=== PATIENT | female | born 1980 | race Caucasian/White ===

== ENCOUNTER 2016-12-13 11:59 | Emergency (ER) | payer OTHER ==
[2016-12-13] MEDS ORDERED: OXYCODONE-ACETAMINOPHEN 5-325 MG TABLET PO ONE (12:16)
--- NOTE | 2016-12-13 12:16 | ER Document Report ---
ED Medical Screen (RME) - General Stated Complaint: BACK PAIN Time seen by provider: 12:14 Mode of Arrival: Ambulatory Information source: Patient TRAVEL OUTSIDE OF THE [place] IN LAST 30 DAYS: No - HPI Patient complains to provider of: LOWER BACK PAIN Onset: Yesterday Onset/Duration: Gradual Quality of pain: Pressure, Sharp Severity: Moderate Pain Level: 4 Associated Symptoms: None. denies: Dysuria Exacerbated by: Sitting, Movement, Walking Relieved by: Denies Similar symptoms previously: No Recently seen / treated by doctor: No Notes: 12/13/16 12:15 PAIN RADIATES TO BACK OF BOTH THIGHS. DENIES INJURY. DENIES PREVIOUS EPISODES OF BACK PROBLEMS. - Related Data Smoking: Quit less than 1 year Frequency of alcohol use: Occasional Drug Abuse: None Allergies/Adverse Reactions: cephalexin monohydrate [From Keflex] Allergy (Verified 12/13/16 12:13) morphine [Morphine] Allergy (Verified 12/13/16 12:13) Bee Stings Allergy (Uncoded 12/13/16 12:13) Past Medical History - Past Medical History Cardiac Medical History: Denies: Hx Coronary Artery Disease, Hx Heart Attack, Hx Hypertension Pulmonary Medical History: Reports: Hx Pneumonia - Hospitalized, May 2004 Denies: Hx Asthma, Hx Bronchitis, Hx COPD Neurological Medical History: Denies: Hx Cerebrovascular Accident, Hx Seizures Musculoskeltal Medical History: Denies Hx Arthritis Past Surgical History: Reports: Hx Section, Hx Gynecologic Surgery - tubes tied, , Hx Myringotomy. Denies: Hx Hysterectomy, Hx Pacemaker - Immunizations Immunizations up to date: Yes Hx Diphtheria, Pertussis, Tetanus Vaccination: Yes Physical Exam - Vital signs Vitals: Temp Pulse Resp BP Pulse Ox 97.6 F 83 16 135/92 H 98 12/13/16 12:04 12/13/16 12:04 12/13/16 12:04 12/13/16 12:04 12/13/16 12:04 Course - Vital Signs Vital signs: Temp Pulse Resp BP Pulse Ox 97.6 F 83 16 135/92 H 98 12/13/16 12:04 12/13/16 12:04 12/13/16 12:04 12/13/16 12:04 12/13/16 12:04
[2016-12-13 12:52] LABS: APPEARANCE,URINE CLEAR; BILIRUBIN,URINE NEGATIVE (NEGATIVE); GLUCOSE, URINE NEGATIVE (NEGATIVE); KETONES,URINE NEGATIVE (NEGATIVE); LEUKOCYTE ESTERASE,URINE TRACE (NEGATIVE); NITRITE,URINE NEGATIVE (NEGATIVE); PROTEIN,URINE NEGATIVE (NEGATIVE); URINE SPECIFIC GRAVITY 1.004; UROBILINOGEN,URINE NEGATIVE mg/dL (<2.0)
--- NOTE | 2016-12-13 14:30 | ER Document Report ---
ED Neck/Back Problem - General Chief Complaint: Low Back Pain Stated Complaint: BACK PAIN Time seen by provider: 14:15 Mode of Arrival: Ambulatory Information source: Patient Notes: 36-year-old female presents to ED for back pain that started yesterday when she was patient states she does not have pain radiating down her leg that it does go out to her buttocks. TRAVEL OUTSIDE OF THE [place] IN LAST 30 DAYS: No - HPI Patient complains to provider of: Pain, Lower back. No: Injury, Neck, Upper back Onset: Yesterday Where: Home - Pain started when she rolled over in adjusted for pillows Onset: Gradual Timing: Still present Quality of pain: Sharp Severity: Moderate Pain Level: 3 Context: Turning - To adjust for pillows and bed. denies: Became dizzy, Bending , Fainted, Fall/near-fall, Lifting, Seizure Recent injury: No Associated symptoms: Lower back pain. denies: Constipation, Incontinence, Motor loss, Numbness/tingling, Radiation to arm, Radiation to chest, Radiation to leg, Sensory loss, Unable to urinate, Upper back pain Exacerbated by: Movement of trunk, Sitting position Relieved by: Nothing Similar symptoms previously: No Recently seen / treated by doctor: No - Related Data Allergies/Adverse Reactions: cephalexin monohydrate [From Keflex] Allergy (Verified 12/13/16 12:13) morphine [Morphine] Allergy (Verified 12/13/16 12:13) Bee Stings Allergy (Uncoded 12/13/16 12:13) Past Medical History - General Information source: Patient - Social History Smoking Status: Former Smoker Cigarette use (# per day): No Chew tobacco use (# tins/day): No Smoking Education Provided: No Frequency of alcohol use: Occasional Drug Abuse: None Occupation: store person Lives with: Spouse/Significant other Family History: Arthritis, CAD, CVA, DM, Hyperlipidemia, Hypertension, Malignancy. denies: COPD, Thyroid Disfunction Patient has suicidal ideation: No Patient has homicidal ideation: No - Past Medical History Cardiac Medical History: Reports: None Pulmonary Medical History: Reports: Hx Pneumonia - Hospitalized, May 2004, Other - Pleurisy EENT Medical History: Reports: None Neurological Medical History: Reports: None Endocrine Medical History: Reports: None Renal/ Medical History: Reports: None Malignancy Medical History: Reports: None GI Medical History: Reports: None Musculoskeltal Medical History: Reports Hx Musculoskeletal Trauma - Toe fracture Skin Medical History: Reports None Psychiatric Medical History: Reports: Hx Depression - After second childbirth Traumatic Medical History: Reports: Hx Fractures - Toe Infectious Medical History: Reports: None Past Surgical History: Reports: Hx Section, Hx Myringotomy, Hx Oral Surgery - Tooth surgically removed, Hx Tubal Ligation - Immunizations Immunizations up to date: Yes Hx Diphtheria, Pertussis, Tetanus Vaccination: Yes Review of Systems - Review of Systems Constitutional: No symptoms reported EENT: No symptoms reported Cardiovascular: No symptoms reported Respiratory: No symptoms reported Gastrointestinal: No symptoms reported Genitourinary: No symptoms reported Female Genitourinary: No symptoms reported Musculoskeletal: Back pain Skin: No symptoms reported Hematologic/Lymphatic: No symptoms reported Neurological/Psychological: No symptoms reported -: Yes All other systems reviewed and negative Physical Exam - Vital signs Vitals: Temp Pulse Resp BP Pulse Ox 97.6 F 83 16 135/92 H 98 12/13/16 12:04 12/13/16 12:04 12/13/16 12:04 12/13/16 12:04 12/13/16 12:04 Interpretation: Normal - General General appearance: Appears well, Alert - HEENT Head: Normocephalic, Atraumatic Eyes: Normal Pupils: PERRL - Respiratory Respiratory status: No respiratory distress Chest status: Nontender Breath sounds: Normal Chest palpation: Normal - Cardiovascular Rhythm: Regular Heart sounds: Normal auscultation Murmur: No - Abdominal Inspection: Normal Distension: No distension Bowel sounds: Normal Tenderness: Nontender Organomegaly: No organomegaly. No: Mass - No pulsatile masses - Back Back: Normal, Other - Back pain bilaterally from just above the waist down no vertebral tenderness no radiation to legs some discomfort in the SI joint bilaterally. No: Vertebra tenderness - Extremities General upper extremity: Normal inspection, Nontender, Normal color, Normal ROM , Normal temperature General lower extremity: Normal inspection, Nontender, Normal color, Normal ROM , Normal temperature, Normal weight bearing. No: Arin's sign - Neurological Neuro grossly intact: Yes Cognition: Normal Orientation: AAOx4 Sybil Coma Scale Eye Opening: Spontaneous Hitchcock Coma Scale Verbal: Oriented Sybil Coma Scale Motor: Obeys Commands Sybil Coma Scale Total: 15 Speech: Normal Motor strength normal: LUE, RUE, LLE, RLE Sensory: Normal - Psychological Associated symptoms: Normal affect, Normal mood - Skin Skin Temperature: Warm Skin Moisture: Dry Skin Color: Normal Course - Re-evaluation Re-evalutation: 12/13/16 14:52 Discussed use of muscle relaxers ice and heat and back exercises for her low back pain for 2 days. No signs of cuada equina. - Vital Signs Vital signs: Temp Pulse Resp BP Pulse Ox 97.6 F 83 16 135/92 H 98 12/13/16 12:04 12/13/16 12:04 12/13/16 12:04 12/13/16 12:04 12/13/16 12:04 - Laboratory Laboratory results interpreted by me: 12/13/16 12:20 Urine Blood MODERATE H Ur Leukocyte Esterase TRACE H Discharge - Discharge Clinical Impression: Low back pain Qualifiers: Chronicity: acute Back pain laterality: bilateral Sciatica presence: without sciatica Qualified Code(s): M54.5 - Low back pain Condition: Stable Disposition: HOME, SELF-CARE Additional Instructions: LOW BACK PAIN: Three out of every four people will have an episode of disabling back pain during their lifetime. Most commonly the pain is due to straining of the muscles and ligaments in the low back. Usual treatment includes: (1) Rest on a firm surface. Avoid lying on your stomach. (2) Ice pack the painful area. After a few days, gentle heat may be used intermittently to relax the area, or ice packs can be continued. (3) Medication may be needed -- muscle relaxers and antiinflammatory medicines are commonly used. (4) As the back improves, exercises are prescribed to strengthen the back and abdominal muscles. Your doctor will advise you on the proper care for your back at each stage in your recovery. You may be better in a few days -- or healing may take several weeks. If new symptoms of a "herniated disc" (radiation of pain, numbness, or tingling down the back of the leg or weakness in the leg) occur, you should be re-examined. Further testing may be necessary. Ibuprofen Ibuprofen is an excellent, safe drug for pain control. In addition, it has potent antiinflammatory effects which are beneficial, especially in the treatment of injuries, arthritis, or tendonitis. It's best to take ibuprofen with food. Persons with ulcer disease or allergy to aspirin should notify their physician of this before taking ibuprofen. Take the medication exactly as prescribed. Don't take additional doses unless instructed to do so by your doctor. If you develop wheezing, shortness of breath, hives, faintness, stomach pain, vomiting, or dark black stools, return for re-evaluation at once. MUSCLE RELAXERS: Muscle relaxing medications are usually prescribed for acute muscle spasm or injury to the neck and back. They are often combined with antiinflammatory pain medication for increased relief. You may stop the muscle relaxer when the pain and stiffness have improved. Start the medication again if spasms recur. Muscle relaxers may cause drowsiness, especially with the first dose. Do not operate machinery or drive while under the effects of the medication. Most muscle relaxers last up to 24 hours. Do not combine the medication with alcohol. ICE PACKS: Apply ice packs frequently against the painful area. Many different schedules are recommended, such as "20 minutes on, 20 minutes off" or "one hour ice, two hours rest." If you need to work, you may need to go longer between ice treatments. You should plan to have the area ice packed AT LEAST one fourth of the time. The ice should be applied over the wrap, tape, or splint, or over a layer of cloth -- not directly against the skin. Some ice bags have a built-in cloth and can be put directly on the skin. WARM PACKS: After approximately two days, apply gentle heat (such as a heating pad or hot water bottle) for about 20 to 30 minutes about every two hours -- at least four times daily. Warmth and elevation will help you make a more rapid recovery , and will ease the pain considerably. Do not use HOT heat, and never apply heat for longer than 30 minutes. The continuous heat can invisibly damage skin and muscles -- even when no burn is seen on the surface. Damaged muscles can make you MORE sore. FOLLOW-UP CARE: If you have been referred to a physician for follow-up care, call the physician s office for an appointment as you were instructed or within the next two days. If you experience worsening or a significant change in your symptoms, notify the physician immediately or return to the Emergency Department at any time for re-evaluation. Prescriptions: Cyclobenzaprine HCl [Flexeril 5 mg Tablet] 5 mg PO TID #15 tablet Naproxen 500 mg PO BIDP PRN #14 tablet PRN Reason: Forms: Elevated Blood Pressure, Return to Work Referrals: JOLENE CANDELARIA MD [Primary Care Provider] - Follow up as needed
[2016-12-13 14:57] VITALS: BP 124/78
== END 2016-12-13 14:55 | disposition home or self-care (01) ==
LOC: ER 11:59
DX: M54.5 Low back pain (principal); Z87.891 Personal history of nicotine dependence
CPT/HCPCS: 81001; 99283

== ENCOUNTER 2017-04-03 12:39 | Emergency (ER) | payer SELFPAY ==
[2017-04-03] MEDS ORDERED: PREDNISONE 20 MG TABLET PO ONE (13:32)
[2017-04-03] MEDS ORDERED: DIPHENHYDRAMINE HCL 25 MG CAPSULE PO ONE (13:32)
[2017-04-03] MEDS ORDERED: FAMOTIDINE 20 MG TABLET PO ONE (13:32)
--- NOTE | 2017-04-03 13:32 | ER Document Report ---
ED Skin Rash/Insect Bite/Abscs - General Chief Complaint: Insect Bite Stated Complaint: POSSIBLE BITE Time Seen by Provider: 04/03/17 13:21 Mode of Arrival: Ambulatory Information source: Patient Notes: 36-year-old female presents to ED for a possible insect bite to her arm. She states that she developed a little red spot this morning but the back of her tongue feels like it is swollen and painful. Difficulty swallowing no difficulty breathing no shortness of breath. Communicates in full sentences and no acute distress noted. TRAVEL OUTSIDE OF THE [place] IN LAST 30 DAYS: No - HPI Patient complains to provider of: Insect bite Onset: Other - Noticed this morning and not sure when she got the bite Quality of pain: Burning Severity: Moderate Pain Level: 3 Skin Character: Other - Insect bite to left forearm minimal swelling to bilateral tonsils no swelling noted to tongue Quality of rash: Painful Identify cause: No Exacerbated by: Denies Relieved by: Denies Similar symptoms previously: Yes Recently seen / treated by doctor: No - Related Data Allergies/Adverse Reactions: cephalexin monohydrate [From Keflex] Allergy (Verified 04/03/17 12:51) morphine [Morphine] Allergy (Verified 04/03/17 12:51) Bee Stings Allergy (Uncoded 04/03/17 12:51) Past Medical History - General Information source: Patient - Social History Smoking Status: Current Every Day Smoker Cigarette use (# per day): Yes - 6-7 cigarettes a day Chew tobacco use (# tins/day): No Smoking Education Provided: Yes - less than 2 minutes Frequency of alcohol use: Occasional Drug Abuse: None Occupation: [employer] Lives with: Spouse/Significant other Family History: Arthritis, CAD, CVA, DM, Hyperlipidemia, Hypertension, Malignancy Patient has suicidal ideation: No Patient has homicidal ideation: No - Past Medical History Cardiac Medical History: Reports: Hx Hypertension Pulmonary Medical History: Reports: Hx Pneumonia - Hospitalized, May 2004 Neurological Medical History: Reports: Hx Migraine Endocrine Medical History: Reports: None Renal/ Medical History: Reports: None Malignancy Medical History: Reports: None GI Medical History: Reports: None Musculoskeltal Medical History: Reports Hx Musculoskeletal Trauma - Toe fracture Skin Medical History: Reports None Psychiatric Medical History: Reports: Hx Depression - After second childbirth Traumatic Medical History: Reports: Hx Fractures - Toe Infectious Medical History: Reports: None Past Surgical History: Reports: Hx Adenoidectomy, Hx Section, Hx Gynecologic Surgery - tubes tied, , LEEP, Hx Myringotomy, Hx Oral Surgery - Tooth surgically removed, Hx Tubal Ligation - Immunizations Immunizations up to date: Yes Hx Diphtheria, Pertussis, Tetanus Vaccination: Yes Review of Systems - Review of Systems Constitutional: No symptoms reported EENT: Throat pain Cardiovascular: No symptoms reported Respiratory: No symptoms reported Gastrointestinal: No symptoms reported Genitourinary: No symptoms reported Female Genitourinary: No symptoms reported Musculoskeletal: No symptoms reported Skin: Other - A small insect bite to left forearm Hematologic/Lymphatic: No symptoms reported Neurological/Psychological: No symptoms reported -: Yes All other systems reviewed and negative Physical Exam - Vital signs Vitals: Temp Pulse Resp BP Pulse Ox 98.2 F 76 18 131/87 H 100 04/03/17 12:55 04/03/17 12:55 04/03/17 12:55 04/03/17 12:55 04/03/17 12:55 Interpretation: Normal - General General appearance: Appears well, Alert - HEENT Head: Normocephalic, Atraumatic Eyes: Normal Pupils: PERRL Ears: Normal External canal: Normal Tympanic membrane: Normal Sinus: Normal Nasal: Normal Mouth/Lips: Normal Mucous membranes: Normal Pharynx: Erythema, Tonsillar hypertrophy - minimal Neck: Normal - Respiratory Respiratory status: No respiratory distress Chest status: Nontender Breath sounds: Normal Chest palpation: Normal - Cardiovascular Rhythm: Regular Heart sounds: Normal auscultation Murmur: No - Abdominal Inspection: Normal Distension: No distension Bowel sounds: Normal Tenderness: Nontender Organomegaly: No organomegaly - Back Back: Normal, Nontender - Extremities General upper extremity: Normal inspection, Nontender, Normal color, Normal ROM , Normal temperature General lower extremity: Normal inspection, Nontender, Normal color, Normal ROM , Normal temperature, Normal weight bearing. No: Arin's sign - Neurological Neuro grossly intact: Yes Cognition: Normal Orientation: AAOx4 Godwin Coma Scale Eye Opening: Spontaneous Godwin Coma Scale Verbal: Oriented Godwin Coma Scale Motor: Obeys Commands Sybil Coma Scale Total: 15 Speech: Normal Motor strength normal: LUE, RUE, LLE, RLE Sensory: Normal - Psychological Associated symptoms: Normal affect, Normal mood - Skin Skin Temperature: Warm Skin Moisture: Dry Skin Color: Normal Location of irregularity: Other - Small insect bite to left forearm Course - Re-evaluation Re-evalutation: 04/03/17 15:21 strep test negative. Follow-up with her primary doctor. Patient was given a prescription for a EpiPen as she states she has multiple allergies to insects and is out of her EpiPen. - Vital Signs Vital signs: Temp Pulse Resp BP Pulse Ox 98.2 F 76 18 131/87 H 100 04/03/17 12:55 04/03/17 12:55 04/03/17 12:55 04/03/17 12:55 04/03/17 12:55 Discharge - Discharge Clinical Impression: Sore throat Insect bite Qualifiers: Encounter type: initial encounter Qualified Code(s): W57.XXXA - Bitten or stung by nonvenomous insect and other nonvenomous arthropods, initial encounter Condition: Stable Disposition: HOME, SELF-CARE Additional Instructions: ACUTE ALLERGIC REACTION: Your symptoms are due to an allergic reaction. Allergy can cause hives, swelling of the hands, feet, and face, hoarseness, and difficulty swallowing or breathing. It may be due to exposure to medication, animal dander, foods, infection, or insect bites. Medication is a common cause, even when prior use of this same medication caused no problems. Acute treatment may include adrenalin and antihistamines. Usually, the specific allergic agent can't be identified unless repeated episodes occur. Home treatment includes the following: (1) Stop any suspicious medications. This will be discussed with you. (2) Oral antihistamines for the next four to five days. Example, diphenhydramine (Benadryl) every four hours. (3) You may also use cimetidine (Tagamet), ranitidine (Zantac), or famotidine ( Pepcid) every four hours if diphenhydramine is not controlling itching and hives. (4) Avoid aspirin until the hives completely disappear. (5) Avoid hot baths or showers until the hives are completely gone. Call the doctor if faintness, difficulty swallowing, tightness in the chest , or wheezing occurs. EPINEPHRINE: An injection of epinephrine (also called adrenalin) is used to treat allergic reactions, asthma, and some other medical conditions. It is a stimulant medication that consticts blood vessels, relaxes smooth muscles such as in the bronchioles of the lung, elevates blood pressure, and increases heart rate. It can temporarily make you feel very nervous and shakey, but it's affects last only a short time, about 15 to 30 minutes at most. You did not need epinephrine today. There was no swelling to your tongue. You have stated you have a reaction to many insects and I have given you a refill for your EpiPen. If you use the EpiPen you need to be seen by a doctor to ensure everything is okay. STEROID MEDICATION: You have been given a medicine of the cortisone/steroid class. This medication is used to control inflammation or allergy. It is usually only given for a short period of time, until the acute process subsides. There are usually no side effects from short-term use of cortisone-like medications. Some persons feel an increased sense of well-being and are not sleepy at bedtime. Long-term use of cortisone medications is best avoided, unless required for a severe condition. If your condition does not remit, or relapses after the course of corticosteroid medication, you should consult your physician. ACID-SUPPRESSING MEDICATION: You have a prescription for medicine which reduces the stomach's secretion of acid. Examples include Zantac, Tagament, and Pepcid. These drugs are often used to allow healing of ulcers or esophagitis. They may be needed to prevent recurrence of ulcers in some patients, or to prevent damage from acid reflux in the esophagus. Take all medication as prescribed, even after the pain is gone. Regular antacids may be added as needed if you have symptoms while taking this medicine. These medications sometimes are prescribed for allergic reactions because they have anti-histaminic effects and relieve the rash and itching of the reaction. There are usually no side effects from this medication. But, in rare cases and particularly in the elderly, serious problems can occur. Contact your doctor if there is fever, rash, hallucinations, confusion, or unusual bruising. Contact your doctor at once if you develop lightheadedness, black or bloody stool, or bloody vomitus. ANTIHISTAMINES: An antihistamine has been given and/or prescribed to control your symptoms. Antihistamines are used for many reasons, including itching, watering eyes, runny nose, allergic swelling, hives, and insect stings. Antihistamines may cause drowsiness, especially with the first dose. Do not operate machinery or drive while under the effects of the medication. Other common side effects include dry mouth and eyes. In older persons, antihistamines can occasionally cause urinary retention, constipation, and trouble focusing the eyes. Do not combine the medication with alcohol, or with any other medication without talking to your doctor. USE OF DIPHENHYDRAMINE: The use of diphenhydramine (Benadryl) has been recommended to control allergic symptoms. The 25 mg strength is available over- the-counter, as well as the elixir. This antihistamine is used for many symptoms. It's useful for itching, watering eyes and nose, allergic swelling, hives, and insect stings. The medication can be repeated four times daily. Age Elixir (12.5 mg/tsp) 25 mg pill 2-3 yr 1/2 tsp 4-8 yr 1 tsp 9-14 yr 2 tsp one tab adult 1-2 tabs Antihistamines may cause drowsiness, especially with the first dose. Do not operate machinery or drive while under the effects of the medication. Do not combine the medication with alcohol, or with any other medication without talking to your doctor. FOLLOW-UP CARE: If you have been referred to a physician for follow-up care, call the physician s office for an appointment as you were instructed or within the next two days. If you experience worsening or a significant change in your symptoms, notify the physician immediately or return to the Emergency Department at any time for re-evaluation. Prescriptions: Epinephrine [Epipen] 0.3 mg IJ ASDIR PRN #1 auto.injct PRN Reason: Forms: Elevated Blood Pressure, Smoking Cessation Education, Return to Work Referrals: JOLENE CANDELARIA MD [Primary Care Provider] - 04/04/17
[2017-04-03 15:55] VITALS: BP 115/70
== END 2017-04-03 15:32 | disposition home or self-care (01) ==
LOC: ER 12:39
DX: S50.862A Insect bite (nonvenomous) of left forearm, initial encounter (principal); W57.XXXA Bitten or stung by nonvenomous insect and other nonvenomous arthropods, initial encounter; J02.9 Acute pharyngitis, unspecified; J35.1 Hypertrophy of tonsils; R13.10 Dysphagia, unspecified; I10 Essential (primary) hypertension; F17.210 Nicotine dependence, cigarettes, uncomplicated; Z71.6 Tobacco abuse counseling; Z88.1 Allergy status to other antibiotic agents; Z88.5 Allergy status to narcotic agent; Z91.030 Bee allergy status
CPT/HCPCS: 99282; 87070; 87880; 87077; J7512

== ENCOUNTER 2018-03-05 11:37 | Emergency (ER) | payer OTHER ==
--- NOTE | 2018-03-05 13:11 | ER Document Report ---
HPI - HPI Patient complains to provider of: worsening back pain Onset: Other - after moving boxes on Quality of pain: Achy Pain Level: 4 Context: 37 yo female with chronic intermittent back pain has worsening bilateral lumbar back pain after moving boxes on . No saddle anesthesia, no radiculopathy. NO fever or chills. No IV drug use. Associated Symptoms: None Exacerbated by: Movement Relieved by: Denies Similar symptoms previously: Yes Recently seen / treated by doctor: No - ROS ROS below otherwise negative: Yes Systems Reviewed and Negative: Yes All other systems reviewed and negative Past Medical History - General Information source: Patient - Social History Smoking Status: Current Every Day Smoker Chew tobacco use (# tins/day): No Frequency of alcohol use: Occasional Drug Abuse: None Lives with: Family Family History: Arthritis, CAD, CVA, DM, Hyperlipidemia, Hypertension, Malignancy Patient has suicidal ideation: No Patient has homicidal ideation: No - Past Medical History Cardiac Medical History: Reports: Hx Hypertension Pulmonary Medical History: Reports: Hx Pneumonia - Hospitalized, May 2004 Neurological Medical History: Reports: Hx Migraine Renal/ Medical History: Denies: Hx Peritoneal Dialysis Musculoskeltal Medical History: Reports Hx Musculoskeletal Trauma - Toe fracture Psychiatric Medical History: Reports: Hx Depression - After second childbirth Traumatic Medical History: Reports: Hx Fractures - Toe Past Surgical History: Reports: Hx Adenoidectomy, Hx Section, Hx Gynecologic Surgery - tubes tied, , LEEP, Hx Myringotomy, Hx Oral Surgery - Tooth surgically removed, Hx Tubal Ligation - Immunizations Immunizations up to date: Yes Hx Diphtheria, Pertussis, Tetanus Vaccination: Yes Vertical Provider Document - CONSTITUTIONAL Agree With Documented VS: Yes Exam Limitations: No Limitations General Appearance: No Apparent Distress - INFECTION CONTROL TRAVEL OUTSIDE OF THE [place] IN LAST 30 DAYS: No - HEENT HEENT: Normocephalic - NECK Neck: Supple - RESPIRATORY Respiratory: Breath Sounds Normal, No Respiratory Distress - CARDIOVASCULAR Cardiovascular: Regular Rate, Regular Rhythm - MUSCULOSKELETAL/EXTREMETIES Musculoskeletal/Extremeties: MAEW, FROM, Tender - bilateral lumbar paraspinal muscles - NEURO Level of Consciousness: Awake, Alert Motor/Sensory: No Motor Deficit, No Sensory Deficit Deep Tendon Reflexes: 2+ - bilateral patellar and ankle - DERM Integumentary: Warm, Dry, No Rash Course - Vital Signs Vital signs: Temp Pulse Resp BP Pulse Ox 97.7 F 79 18 142/86 H 97 03/05/18 11:42 03/05/18 11:42 03/05/18 11:42 03/05/18 11:42 03/05/18 11:42 Discharge - Discharge Clinical Impression: Bilateral lumbar back strain Condition: Good Disposition: HOME, SELF-CARE Instructions: Acetaminophen, Chiropractor, Low Back Pain ([facility]), Muscle Relaxers ([facility]), Muscle Strain ([facility]), Ultram ([facility]), Warm Packs ([facility]) Additional Instructions: Warm compress Tylenol up to 4000 mg per day Motrin 800 mg up to 3 times a day Flexeril for muscle relaxer 10 mg 3 times a day as needed Ultram for pain 50 mg every 4-6 hours as needed See chiropractor orthopedics if persists Prescriptions: Cyclobenzaprine HCl [Flexeril 10 Mg Tablet] 10 mg PO TIDP PRN #20 tablet PRN Reason: Tramadol HCl [Ultram 50 mg Tablet] 50 mg PO ASDIR PRN #15 tablet PRN Reason: Forms: Return to Work Referrals: JOLENE CANDELARIA MD [Primary Care Provider] - Follow up tomorrow
[2018-03-05] MEDS ORDERED: ACETAMINOPHEN 325 MG TABLET PO ONE (13:21)
[2018-03-05] MEDS ORDERED: ONDANSETRON 4 MG TAB.RAPDIS PO ONE (13:21)
[2018-03-05] MEDS ORDERED: KETOROLAC TROMETHAMINE 60 MG/2 ML SDV IM ONE (13:21)
[2018-03-05] MEDS ORDERED: TRAMADOL HCL 50 MG TABLET PO ONE (13:22)
[2018-03-05 14:00] VITALS: BP 165/95
== END 2018-03-05 13:59 | disposition home or self-care (01) ==
LOC: ER 11:37
DX: S39.012A Strain of muscle, fascia and tendon of lower back, initial encounter (principal); X58.XXXA Exposure to other specified factors, initial encounter; I10 Essential (primary) hypertension; F17.200 Nicotine dependence, unspecified, uncomplicated
CPT/HCPCS: 99283; J1885; S0119

== ENCOUNTER 2018-05-12 22:57 | Emergency (ER) | payer OTHER ==
--- NOTE | 2018-05-13 00:07 | ER Document Report ---
ED Medical Screen (RME) - General Chief Complaint: Abdominal Pain Stated Complaint: ABDOMINAL PAIN,NAUSEA, FEVER Time Seen by Provider: 05/13/18 00:05 Mode of Arrival: Ambulatory Information source: Patient Notes: pt presents to the ED with epigastric pain since yesterday. Reports bad nausea, denies vomiting. Reports cold sweats. RUQ, epigastric pain, increased after eating. TRAVEL OUTSIDE OF THE [place] IN LAST 30 DAYS: No - Related Data Allergies/Adverse Reactions: cephalexin monohydrate [From Keflex] Allergy (Verified 04/03/17 12:51) morphine [Morphine] Allergy (Verified 04/03/17 12:51) Bee Stings Allergy (Uncoded 04/03/17 12:51) Past Medical History - Past Medical History Cardiac Medical History: Reports: Hx Hypertension Denies: Hx Coronary Artery Disease, Hx Heart Attack Pulmonary Medical History: Reports: Hx Pneumonia - Hospitalized, May 2004 Denies: Hx Asthma, Hx Bronchitis, Hx COPD Neurological Medical History: Reports: Hx Migraine. Denies: Hx Cerebrovascular Accident, Hx Seizures Renal/ Medical History: Denies: Hx Peritoneal Dialysis Musculoskeltal Medical History: Denies Hx Arthritis, Reports Hx Musculoskeletal Trauma - Toe fracture Psychiatric Medical History: Reports: Hx Depression - After second childbirth Traumatic Medical History: Reports: Hx Fractures - Toe Past Surgical History: Reports: Hx Adenoidectomy, Hx Section, Hx Gynecologic Surgery - tubes tied, , LEEP, Hx Myringotomy, Hx Oral Surgery - Tooth surgically removed, Hx Tubal Ligation. Denies: Hx Hysterectomy , Hx Pacemaker - Immunizations Immunizations up to date: Yes Hx Diphtheria, Pertussis, Tetanus Vaccination: Yes Physical Exam - Vital signs Vitals: Temp Pulse Resp BP Pulse Ox 98.8 F 79 18 149/94 H 99 05/12/18 23:20 05/12/18 23:20 05/12/18 23:20 05/12/18 23:20 05/12/18 23:20 Course - Vital Signs Vital signs: Temp Pulse Resp BP Pulse Ox 98.8 F 79 18 149/94 H 99 05/12/18 23:20 05/12/18 23:20 05/12/18 23:20 05/12/18 23:20 05/12/18 23:20
[2018-05-13] MEDS ORDERED: DICYCLOMINE HCL 20 MG TABLET PO ONE (00:08)
[2018-05-13] MEDS ORDERED: ONDANSETRON 4 MG TAB.RAPDIS PO ONE ×2 (00:08→05:52)
[2018-05-13 01:13] LABS: APPEARANCE,URINE CLEAR; BILIRUBIN,URINE NEGATIVE (NEGATIVE); COLOR,URINE YELLOW; GLUCOSE, URINE NEGATIVE (NEGATIVE); KETONES,URINE NEGATIVE (NEGATIVE); LEUKOCYTE ESTERASE,URINE NEGATIVE (NEGATIVE); NITRITE,URINE NEGATIVE (NEGATIVE); PROTEIN,URINE NEGATIVE (NEGATIVE); URINE SPECIFIC GRAVITY 1.016
--- NOTE | 2018-05-13 01:24 | RADIOLOGY REPORT (SQ) ---
EXAM DESCRIPTION: US ABDOMEN LIMITED COMPLETED DATE/TME: 05/13/2018 00:07 CLINICAL HISTORY: RUQ, epigastric pain COMPARISON: None. TECHNIQUE: Real-time sonographic images of the right upper abdomen were obtained using a curved multihertz transducer. FINDINGS: Pancreas: The visualized portions of the pancreas are unremarkable. Vascular: The visualized portions of the aorta and IVC are unremarkable. Liver: The liver has normal contour and echogenicity. Hepatopedal flow in the portal vein confirmed with color and spectral Doppler imaging. The common bile duct measures 0.2 cm. Gallbladder: The gallbladder has a normal appearance. No gallstones identified. No wall thickening or pericholecystic fluid. The gallbladder is contracted. Right Kidney: The right kidney measures 10.8 cm in length. No hydronephrosis, solid renal mass, or shadowing calculi. IMPRESSION: No gallstones. No abnormality in the right upper abdomen.
[2018-05-13 03:52] LABS: ABSOLUTE BASOPHILS # (AUTO) 0.1 10^3/uL (0.0-0.2); ABSOLUTE EOSINOPHILS # (AUTO) 0.2 10^3/uL (0.0-0.6); ABSOLUTE LYMPHOCYTES (AUTO) 4.3 10^3/uL (0.5-4.7); ABSOLUTE MONOCYTES (AUTO) 0.9 10^3/uL (0.1-1.4); ABSOLUTE NEUT (AUTO) 6.1 10^3/uL (1.7-8.2); BASOPHILS % (AUTO) 0.6 % (0-2); EOSINOPHILS % (AUTO) 2.1 % (0-6); HEMATOCRIT 37.3 % (36.0-47.0); HEMOGLOBIN 12.5 g/dL (12.0-15.5); MEAN CORPUSCULAR HEMOGLOBIN 29.4 pg (27.0-33.4); MEAN CORPUSCULAR HGB CONC 33.4 g/dL (32.0-36.0); MEAN CORPUSCULAR VOLUME 88 fl (80-97); MONOCYTES % (AUTO) 7.8 % (3-13); PLATELET COUNT 202 10^3/uL (150-450); RED BLOOD COUNT 4.24 10^6/uL (3.72-5.28); RED CELL DISTRIBUTION WIDTH 13.5 % (11.5-14.0); SEGMENTED NEUTROPHILS % (AUTO) 52.5 % (42-78); TOTAL CELLS COUNTED % (AUTO) 100 %; WHITE BLOOD COUNT 11.5 10^3/uL (4.0-10.5)
[2018-05-13] MEDS ORDERED: KETOROLAC TROMETHAMINE 60 MG/2 ML SDV IM ONE (03:59)
[2018-05-13 04:09] LABS: ALANINE AMINOTRANSFERASE 22 U/L (9-52); ALBUMIN 3.5 g/dL (3.5-5.0); ALKALINE PHOSPHATASE 62 U/L (38-126); ANION GAP 11 (5-19); ASPARTATE AMINO TRANSFERASE 15 U/L (14-36); BILIRUBIN,DIRECT 0.2 mg/dL (0.0-0.4); BILIRUBIN,TOTAL 0.2 mg/dL (0.2-1.3); BLOOD UREA NITROGEN 14 mg/dL (7-20); CALCIUM 8.9 mg/dL (8.4-10.2); CARBON DIOXIDE 24 mmol/L (22-30); CHLORIDE 107 mmol/L (98-107); GLUCOSE 93 mg/dL (75-110); LIPASE 318.7 U/L (23-300); POTASSIUM 3.9 mmol/L (3.6-5.0); SODIUM 141.5 mmol/L (137-145); TOTAL PROTEIN 6.1 g/dL (6.3-8.2)
[2018-05-13] MEDS ORDERED: HYDROMORPHONE HCL INJ/PF 2 MG/ML AMPULE IM ONE (05:05)
--- NOTE | 2018-05-13 05:05 | ER Document Report ---
ED General - General Chief Complaint: Abdominal Pain Stated Complaint: ABDOMINAL PAIN,NAUSEA, FEVER Time Seen by Provider: 05/13/18 00:05 Mode of Arrival: Ambulatory Information source: Patient Notes: Patient is a 37-year-old female who presents with nausea and left upper quadrant pain that started 2 days ago. Patient denies any vomiting or diarrhea. Patient denies any urinary symptoms or back pain. Patient denies any past medical history, does not take any daily medications and reports a past surgical history of a 1. Patient is a smoker and patient is a heavy caffeine user. TRAVEL OUTSIDE OF THE [place] IN LAST 30 DAYS: No - Related Data Allergies/Adverse Reactions: cephalexin monohydrate [From Keflex] Allergy (Verified 04/03/17 12:51) morphine [Morphine] Allergy (Verified 04/03/17 12:51) Bee Stings Allergy (Uncoded 04/03/17 12:51) Past Medical History - General Information source: Patient - Social History Smoking Status: Current Every Day Smoker Chew tobacco use (# tins/day): No Frequency of alcohol use: None Drug Abuse: None Family History: Arthritis, CAD, CVA, DM, Hyperlipidemia, Hypertension, Malignancy Patient has suicidal ideation: No Patient has homicidal ideation: No - Past Medical History Cardiac Medical History: Reports: Hx Hypertension Denies: Hx Coronary Artery Disease, Hx Heart Attack Pulmonary Medical History: Reports: Hx Pneumonia - Hospitalized, May 2004 Denies: Hx Asthma, Hx Bronchitis, Hx COPD Neurological Medical History: Reports: Hx Migraine. Denies: Hx Cerebrovascular Accident, Hx Seizures Renal/ Medical History: Denies: Hx Peritoneal Dialysis Musculoskeltal Medical History: Denies Hx Arthritis, Reports Hx Musculoskeletal Trauma - Toe fracture Psychiatric Medical History: Reports: Hx Depression - After second childbirth Traumatic Medical History: Reports: Hx Fractures - Toe Past Surgical History: Reports: Hx Adenoidectomy, Hx Section, Hx Gynecologic Surgery - tubes tied, , LEEP, Hx Myringotomy, Hx Oral Surgery - Tooth surgically removed, Hx Tubal Ligation. Denies: Hx Hysterectomy , Hx Pacemaker - Immunizations Immunizations up to date: Yes Hx Diphtheria, Pertussis, Tetanus Vaccination: Yes Review of Systems - Review of Systems Constitutional: No symptoms reported EENT: No symptoms reported Cardiovascular: No symptoms reported Respiratory: No symptoms reported Gastrointestinal: See HPI Genitourinary: No symptoms reported Female Genitourinary: No symptoms reported Musculoskeletal: No symptoms reported Skin: No symptoms reported Hematologic/Lymphatic: No symptoms reported Neurological/Psychological: No symptoms reported Physical Exam - Vital signs Vitals: Temp Pulse Resp BP Pulse Ox 98.8 F 79 18 149/94 H 99 05/12/18 23:20 05/12/18 23:20 05/12/18 23:20 05/12/18 23:20 05/12/18 23:20 - Notes Notes: PHYSICAL EXAMINATION: GENERAL: Well-appearing, well-nourished and in no acute distress. HEAD: Atraumatic, normocephalic. EYES: Pupils equal round and reactive to light, extraocular movements intact, conjunctiva are normal. ENT: Nares patent, oropharynx clear without exudates. Moist mucous membranes. NECK: Normal range of motion, supple without lymphadenopathy LUNGS: Breath sounds clear to auscultation bilaterally and equal. No wheezes rales or rhonchi. HEART: Regular rate and rhythm without murmurs ABDOMEN: Soft, nondistended abdomen. Tenderness to palpation to left upper quadrant. No guarding, no rebound. No masses appreciated. Female : No CVA tenderness Musculoskeletal: Normal range of motion, no pitting or edema. No cyanosis. NEUROLOGICAL: Cranial nerves grossly intact. Normal speech, normal gait. Normal sensory, motor exams PSYCH: Normal mood, normal affect. SKIN: Warm, Dry, normal turgor, no rashes or lesions noted. Course - Re-evaluation Re-evalutation: Patient is an otherwise healthy 37-year-old female who presents with left upper quadrant pain with nausea since Monday. Patient reports that the pain has been progressively getting worse. Patient does appear to be in moderate distress. Will obtain labs, and treat patient for pain and nausea. Patient reports normal bowel movements and normal passage of gas. I suspect pancreatitis due to patient's description and location of pain. Patient initially given Toradol with minimal relief. CBC, comprehensive metabolic panel and urinalysis are all unremarkable. Lipase is mildly elevated at 318.7. Patient will be p.o. trialed and discharged home if she is able to take in fluids without vomiting. As patient does appear well and her vital signs are within normal limits. Patient did fine tolerating p.o. fluids, patient will be discharged home with plans to start on clear liquids only and advance diet as tolerated over the next few days. Patient will be given prescription for pain and nausea medications. Patient will have a low threshold for return to the emergency department patient will return for reasons such as development of fever, worsening pain or if she is unable to hold down fluids. - Vital Signs Vital signs: Temp Pulse Resp BP Pulse Ox 98.2 F 72 16 120/82 97 05/13/18 06:38 05/13/18 06:38 05/13/18 06:38 05/13/18 06:38 05/13/18 06:38 - Laboratory Result Diagrams: 05/13/18 03:33 05/13/18 03:33 Laboratory results interpreted by me: 05/13/18 05/13/18 05/13/18 00:18 03:33 03:33 WBC 11.5 H Total Protein 6.1 L Lipase 318.7 H Urine Urobilinogen 2.0 H Discharge - Discharge Disposition: HOME, SELF-CARE Additional Instructions: Pancreatitis Pancreatitis is an inflammation of the pancreas, an organ at the back of your abdomen. The pancreas produces insulin and enzymes that digest your food. Pancreatitis can be caused by gallstones in the bile duct, by alcohol or viruses, or by excess fat or calcium in the blood stream. Occasionally, pancreatitis occurs when a stomach ulcer campos through into the pancreas. We try to find the cause of pancreatitis, but some tests can't be done until the pancreas heals. The usual symptoms of pancreatitis are pain in the pit of the stomach that goes straight through to the back, vomiting, and low-grade fever. Severe cases require hospital admission, but many patients with mild pancreatitis do well at home. You will probably need medicine for pain and for vomiting. Sometimes we prescribe medicine to decrease stomach acid secretion and to decrease flow of pancreatic juices. Start with a diet of clear liquids (soda pop, juices). When the pain is decreasing, you can add some simple starches (potato, toast, applesauce). Avoid proteins and fats until you are completely painfree. When you're better, your doctor may suggest treatment to prevent future pancreatitis (such as gallbladder removal). Avoid alcohol forever. Get immediate treatment for any future episodes. Contact your doctor at once or return here if you have increasing pain, shortness of breath, general swelling, increasing size of the abdomen, continued vomiting, muscle spasms, or other new symptoms. Prescriptions: Dicyclomine HCl [Bentyl 20 mg Tablet] 20 mg PO QID #40 tablet Ondansetron [Zofran Odt 4 mg Tablet] 1 - 2 tab PO Q4H PRN #15 tab.rapdis PRN Reason: For Nausea/Vomiting Sucralfate [Carafate 1 gm Tablet] 1 gm PO QID #20 tablet Referrals: JOLENE CANDELARIA MD [Primary Care Provider] - Follow up as needed
[2018-05-13] MEDS ORDERED: HYDROCODONE/ACETAMINOPHEN 5-325 MG (6 TAB/ER DISP) PO PRN (06:23)
[2018-05-13 06:43] VITALS: BP 120/82
== END 2018-05-13 06:43 | disposition home or self-care (01) ==
LOC: ER 22:57
DX: K85.90 Acute pancreatitis without necrosis or infection, unspecified (principal); R10.12 Left upper quadrant pain; R11.0 Nausea; I10 Essential (primary) hypertension; F17.200 Nicotine dependence, unspecified, uncomplicated; Z98.51 Tubal ligation status; Z88.1 Allergy status to other antibiotic agents; Z88.5 Allergy status to narcotic agent; Z91.030 Bee allergy status
CPT/HCPCS: 99284; 96372; 36415; 83690; 84703; 85025; 80053; 81001; 76705; J3490; J1885; S0119; J1170

== ENCOUNTER → 2018-05-23 | Outpatient (CLI) | payer OTHER ==
[2018-05-23 16:19] LABS: ABSOLUTE BASOPHILS # (AUTO) 0.1 10^3/uL (0.0-0.2); ABSOLUTE EOSINOPHILS # (AUTO) 0.2 10^3/uL (0.0-0.6); ABSOLUTE LYMPHOCYTES (AUTO) 3.2 10^3/uL (0.5-4.7); ABSOLUTE MONOCYTES (AUTO) 0.5 10^3/uL (0.1-1.4); BASOPHILS % (AUTO) 0.7 % (0-2); HEMATOCRIT 41.7 % (36.0-47.0); HEMOGLOBIN 14.1 g/dL (12.0-15.5); LYMPHOCYTES % (AUTO) 35.4 % (13-45); MEAN CORPUSCULAR HGB CONC 33.8 g/dL (32.0-36.0); MEAN CORPUSCULAR VOLUME 89 fl (80-97); PLATELET COUNT 268 10^3/uL (150-450); RED BLOOD COUNT 4.69 10^6/uL (3.72-5.28); RED CELL DISTRIBUTION WIDTH 13.5 % (11.5-14.0); SEGMENTED NEUTROPHILS % (AUTO) 55.9 % (42-78); TOTAL CELLS COUNTED % (AUTO) 100 %
[2018-05-23 16:43] LABS: LIPASE 117.6 U/L (23-300)
== END ==
LOC: OD 15:26
PROVIDERS: ATTEND Internal Medicine
DX: R10.12 Left upper quadrant pain (principal)
CPT/HCPCS: 36415; 82150; 83690; 85025

== ENCOUNTER 2018-12-18 18:49 | Emergency (ER) | payer BC, OTHER ==
[2018-12-18 21:32] LABS: ABSOLUTE EOSINOPHILS # (AUTO) 0.1 10^3/uL (0.0-0.6); ABSOLUTE LYMPHOCYTES (AUTO) 3.3 10^3/uL (0.5-4.7); ABSOLUTE MONOCYTES (AUTO) 0.8 10^3/uL (0.1-1.4); ABSOLUTE NEUT (AUTO) 7.4 10^3/uL (1.7-8.2); BASOPHILS % (AUTO) 0.3 % (0-2); EOSINOPHILS % (AUTO) 1.3 % (0-6); HEMATOCRIT 40.8 % (36.0-47.0); HEMOGLOBIN 13.7 g/dL (12.0-15.5); LYMPHOCYTES % (AUTO) 28.1 % (13-45); MEAN CORPUSCULAR HGB CONC 33.5 g/dL (32.0-36.0); MEAN CORPUSCULAR VOLUME 90 fl (80-97); MONOCYTES % (AUTO) 6.7 % (3-13); PLATELET COUNT 253 10^3/uL (150-450); RED BLOOD COUNT 4.55 10^6/uL (3.72-5.28); RED CELL DISTRIBUTION WIDTH 13.2 % (11.5-14.0); SEGMENTED NEUTROPHILS % (AUTO) 63.6 % (42-78); TOTAL CELLS COUNTED % (AUTO) 100 %; WHITE BLOOD COUNT 11.7 10^3/uL (4.0-10.5)
[2018-12-18 21:51] LABS: ALANINE AMINOTRANSFERASE 50 U/L (9-52); ALBUMIN 4.1 g/dL (3.5-5.0); ALKALINE PHOSPHATASE 85 U/L (38-126); ANION GAP 7 (5-19); ASPARTATE AMINO TRANSFERASE 26 U/L (14-36); BILIRUBIN,DIRECT 0.2 mg/dL (0.0-0.4); BILIRUBIN,TOTAL 0.5 mg/dL (0.2-1.3); BLOOD UREA NITROGEN 7 mg/dL (7-20); CALCIUM 9.4 mg/dL (8.4-10.2); CARBON DIOXIDE 26 mmol/L (22-30); CHLORIDE 105 mmol/L (98-107); GLUCOSE 90 mg/dL (75-110); LIPASE 33.1 U/L (23-300); POTASSIUM 4.1 mmol/L (3.6-5.0); SODIUM 137.6 mmol/L (137-145); TOTAL PROTEIN 6.6 g/dL (6.3-8.2)
[2018-12-18] MEDS ORDERED: ONDANSETRON 4 MG TAB.RAPDIS PO ONE (22:13)
[2018-12-18] MEDS ORDERED: NORMAL SALINE 1000 ML 1,000 ML IV ONE (22:13)
[2018-12-18] MEDS ORDERED: SUCRALFATE 1 GM TABLET PO ONE (22:13)
--- NOTE | 2018-12-18 22:16 | ER Document Report ---
ED Medical Screen (RME) - General Chief Complaint: Upper Abdominal Pain Stated Complaint: ABDOMINAL PAIN Time Seen by Provider: 12/18/18 22:06 Primary Care Provider: CLAIRE OTTO MD [Primary Care Provider] - Follow up as needed Notes: Patient is a 38-year-old female who presents to the emergency department with a chief complaint of vomiting. Her symptoms started this morning. She states that she vomited once. She said it was brown, but she had been drinking Dr. Acevedo beforehand. She denies any fever. She denies any vomiting. She has history of a tubal ligation. She is sexually active. History of a cholecystectomy. I have greeted and performed a rapid initial assessment of this patient. A comprehensive ED assessment and evaluation of the patient, analysis of test results and completion of medical decision making process will be conducted by an additional ED providers. TRAVEL OUTSIDE OF THE [place] IN LAST 30 DAYS: No - Related Data Allergies/Adverse Reactions: cephalexin monohydrate [From Keflex] Allergy (Verified 04/03/17 12:51) morphine [Morphine] Allergy (Verified 04/03/17 12:51) Bee Stings Allergy (Uncoded 04/03/17 12:51) Past Medical History - Social History Chew tobacco use (# tins/day): No Frequency of alcohol use: Rare Drug Abuse: None - Past Medical History Cardiac Medical History: Reports: Hx Hypertension Denies: Hx Coronary Artery Disease, Hx Heart Attack Pulmonary Medical History: Reports: Hx Pneumonia - Hospitalized, May 2004 Denies: Hx Asthma, Hx Bronchitis, Hx COPD Neurological Medical History: Reports: Hx Migraine. Denies: Hx Cerebrovascular Accident, Hx Seizures Renal/ Medical History: Denies: Hx Peritoneal Dialysis Musculoskeltal Medical History: Denies Hx Arthritis, Reports Hx Musculoskeletal Trauma - Toe fracture Psychiatric Medical History: Reports: Hx Depression - After second childbirth Traumatic Medical History: Reports: Hx Fractures - Toe Past Surgical History: Reports: Hx Adenoidectomy, Hx Section, Hx Gynecologic Surgery - tubes tied, , LEEP, Hx Myringotomy, Hx Oral Surgery - Tooth surgically removed, Hx Tubal Ligation. Denies: Hx Hysterectomy, Hx Pacemaker - Immunizations Immunizations up to date: Yes Hx Diphtheria, Pertussis, Tetanus Vaccination: Yes Physical Exam - Vital signs Vitals: Temp Pulse Resp BP Pulse Ox 98.5 F 66 16 141/87 H 99 02/05/19 19:06 12/18/18 19:06 12/18/18 19:06 12/18/18 19:06 12/18/18 19:06 - Abdominal Tenderness: Tender Course - Vital Signs Vital signs: Temp Pulse Resp BP Pulse Ox 98.5 F 66 16 141/87 H 99 12/18/18 19:06 12/18/18 19:06 12/18/18 19:06 12/18/18 19:06 12/18/18 19:06 - Laboratory Result Diagrams: 12/18/18 21:24 12/18/18 21:24 Laboratory results interpreted by me: 12/18/18 12/18/18 21:24 21:24 WBC 11.7 H Creatinine 0.46 L Doctor's Discharge - Discharge Referrals: CLAIRE OTTO MD [Primary Care Provider] - Follow up as needed
[2018-12-18 22:49] LABS: APPEARANCE,URINE SLIGHTLY-CLOUDY; BILIRUBIN,URINE NEGATIVE (NEGATIVE); COLOR,URINE YELLOW; GLUCOSE, URINE NEGATIVE (NEGATIVE); KETONES,URINE NEGATIVE (NEGATIVE); LEUKOCYTE ESTERASE,URINE NEGATIVE (NEGATIVE); NITRITE,URINE NEGATIVE (NEGATIVE); PROTEIN,URINE NEGATIVE (NEGATIVE); URINE SPECIFIC GRAVITY 1.017; UROBILINOGEN,URINE NEGATIVE mg/dL (<2.0)
[2018-12-18] MEDS ORDERED: METOCLOPRAMIDE HCL INJ/PF 10 MG/2 ML SDV IV ONE (23:09)
[2018-12-19] MEDS ORDERED: LIDOCAINE 2% VISCOUS SOLN 20 ML UDCUP PO ONE (00:49)
[2018-12-19] MEDS ORDERED: METOCLOPRAMIDE HCL ORAL SOLN 10 MG/10 ML UDCUP PO ONE (00:49)
[2018-12-19] MEDS ORDERED: MAG HYDROX/AL HYDROX/SIMETH SUSP 30 ML UDCUP PO ONE (00:49)
--- NOTE | 2018-12-19 00:52 | ER Document Report ---
ED General - General Chief Complaint: Upper Abdominal Pain Stated Complaint: ABDOMINAL PAIN Time Seen by Provider: 12/18/18 22:06 Primary Care Provider: CLAIRE OTTO MD [Primary Care Provider] - Follow up as needed Information source: Patient Notes: 38-year-old female with a history of a hiatal hernia presents emergency department with complaints of a sharp and stabbing sensation located in the epigastric area. Patient states that it began this morning. She denies any alleviating or exacerbating factors. She denies any radiation of the pain. Patient denies taking any medication prior to arrival. Patient has had similar symptoms in the past that were related to her gallbladder. Patient states that she has had a cholecystectomy. She does state that she has a large caffeine intake and smokes. Patient denies any chest pain, shortness of breath. She does not have a history of hypertension, hyperlipidemia, diabetes, coronary artery disease, family history of coronary artery disease. TRAVEL OUTSIDE OF THE [place] IN LAST 30 DAYS: No - HPI Onset: This morning Onset/Duration: Sudden Quality of pain: Stabbing, Throbbing Severity: Moderate Associated symptoms: Nausea, Vomiting Exacerbated by: Denies Relieved by: Denies Similar symptoms previously: Yes Recently seen / treated by doctor: No - Related Data Allergies/Adverse Reactions: cephalexin monohydrate [From Keflex] Allergy (Verified 04/03/17 12:51) morphine [Morphine] Allergy (Verified 04/03/17 12:51) Bee Stings Allergy (Uncoded 04/03/17 12:51) Past Medical History - General Information source: Patient - Social History Smoking Status: Current Every Day Smoker Chew tobacco use (# tins/day): No Frequency of alcohol use: Rare Drug Abuse: None Family History: Arthritis, CAD, CVA, DM, Hyperlipidemia, Hypertension, Malignancy Patient has suicidal ideation: No Patient has homicidal ideation: No - Past Medical History Cardiac Medical History: Reports: Hx Hypertension Denies: Hx Coronary Artery Disease, Hx Heart Attack Pulmonary Medical History: Reports: Hx Pneumonia - Hospitalized, May 2004 Denies: Hx Asthma, Hx Bronchitis, Hx COPD Neurological Medical History: Reports: Hx Migraine. Denies: Hx Cerebrovascular Accident, Hx Seizures Renal/ Medical History: Denies: Hx Peritoneal Dialysis Musculoskeletal Medical History: Denies Hx Arthritis, Reports Hx Musculoskeletal Trauma - Toe fracture Psychiatric Medical History: Reports: Hx Depression - After second childbirth Traumatic Medical History: Reports: Hx Fractures - Toe Past Surgical History: Reports: Hx Adenoidectomy, Hx Section, Hx Gynecologic Surgery - tubes tied, , LEEP, Hx Myringotomy, Hx Oral Surgery - Tooth surgically removed, Hx Tubal Ligation. Denies: Hx Hysterectomy, Hx Pacemaker - Immunizations Immunizations up to date: Yes Hx Diphtheria, Pertussis, Tetanus Vaccination: Yes Review of Systems - Review of Systems Constitutional: No symptoms reported EENT: No symptoms reported Cardiovascular: No symptoms reported Respiratory: No symptoms reported Gastrointestinal: Abdominal pain, Nausea, Vomiting Genitourinary: No symptoms reported Female Genitourinary: No symptoms reported Musculoskeletal: No symptoms reported Skin: No symptoms reported Hematologic/Lymphatic: No symptoms reported Neurological/Psychological: No symptoms reported -: Yes All other systems reviewed and negative Physical Exam - Vital signs Vitals: Temp Pulse Resp BP Pulse Ox 98.5 F 66 16 141/87 H 99 12/18/18 19:06 12/18/18 19:06 12/18/18 19:06 12/18/18 19:06 12/18/18 19:06 - Notes Notes: PHYSICAL EXAMINATION: GENERAL: Well-appearing, well-nourished and in no acute distress. HEAD: Atraumatic, normocephalic. EYES: Pupils equal round and reactive to light, extraocular movements intact, conjunctiva are normal. ENT: Nares patent, oropharynx clear without exudates. Moist mucous membranes. NECK: Normal range of motion, supple without lymphadenopathy LUNGS: Breath sounds clear to auscultation bilaterally and equal. No wheezes rales or rhonchi. HEART: Regular rate and rhythm without murmurs ABDOMEN: Soft, epigastric tenderness to palpation. No rebound or guarding. Normal active bowel sounds. Female : deferred Musculoskeletal: Normal range of motion, no pitting or edema. No cyanosis. NEUROLOGICAL: Cranial nerves grossly intact. Normal speech, normal gait. Normal sensory, motor exams PSYCH: Normal mood, normal affect. SKIN: Warm, Dry, normal turgor, no rashes or lesions noted. Course - Re-evaluation Re-evalutation: 12/19/18 02:45 Patient given a GI cocktail in the emergency department. Labs and imaging obtained. Labs are within normal limits. Ultrasound of the abdomen was completed. No acute process was identified. On reevaluation, patient states that she is feeling better. She states that the GI cocktail did help. She states that she is still having some slight pain. She was given some Toradol. Repeat abdominal exam is benign. No tenderness to palpation. No rebound or guarding. Normal active bowel sounds. Patient likely has gastritis. I instructed her to follow-up with her primary care physician this week, to continue taking her medications as directed, and to return for any worsening symptoms. The patient is agreeable with the plan of care. 12/19/18 02:47 - Vital Signs Vital signs: Temp Pulse Resp BP Pulse Ox 98.5 F 66 16 141/87 H 99 12/18/18 19:06 12/18/18 19:06 12/18/18 19:06 12/18/18 19:06 12/18/18 19:06 - Laboratory Result Diagrams: 12/18/18 21:24 12/18/18 21:24 Laboratory results interpreted by me: 12/18/18 12/18/18 12/18/18 21:24 21:24 22:35 WBC 11.7 H Creatinine 0.46 L Urine Blood MODERATE H Discharge - Discharge Clinical Impression: Gastritis Qualifiers: Gastritis type: unspecified gastritis Chronicity: acute Gastritis bleeding: without bleeding Qualified Code(s): K29.00 - Acute gastritis without bleeding Condition: Good Disposition: HOME, SELF-CARE Instructions: Gastritis ([facility]) Referrals: CLAIRE OTTO MD [Primary Care Provider] - Follow up as needed
--- NOTE | 2018-12-19 01:56 | RADIOLOGY REPORT (SQ) ---
EXAM DESCRIPTION: US ABDOMEN LIMITED COMPLETED DATE/TME: 12/18/2018 22:12 CLINICAL HISTORY: 38 years, Female, eval bile duct; hx of cholecysectomy TECHNIQUE: Grayscale and Doppler sonogram of the right upper quadrant abdomen. COMPARISON: None. FINDINGS: Pancreas: Not well visualized due to intervening bowel gas. Aorta: Visualized portion is unremarkable. IVC: Visualized portion is unremarkable. Liver: Homogenous echotexture. No mass lesion. Main portal vein: Normal hepatopetal flow. Gallbladder: Not visualized. Common bile duct: 0.3 cm. Right kidney: 10.1 cm. No hydronephrosis. No nephrolithiasis. IMPRESSION: No acute sonographic abnormality. No biliary dilatation.
[2018-12-19] MEDS ORDERED: KETOROLAC TROMETHAMINE INJ/PF 30 MG/1 ML SDV IV ONE (02:11)
[2018-12-19 03:15] VITALS: BP 115/70
== END 2018-12-19 03:15 | disposition home or self-care (01) ==
LOC: ER 18:49
DX: K29.00 Acute gastritis without bleeding (principal); R11.2 Nausea with vomiting, unspecified; F17.200 Nicotine dependence, unspecified, uncomplicated; Z98.51 Tubal ligation status; Z90.49 Acquired absence of other specified parts of digestive tract; Z88.1 Allergy status to other antibiotic agents; Z88.5 Allergy status to narcotic agent; Z91.030 Bee allergy status
CPT/HCPCS: 99284; 96361; 96374; 96375; 36415; 83690; 85025; 81025; 80053; 81001; 76705; S0119; J3490; J1885; J2765; J7030

== ENCOUNTER 2020-01-20 09:41 | Emergency (ER) | payer BC ==
[2020-01-20] MEDS ORDERED: OXYCODONE-ACETAMINOPHEN 5-325 MG TABLET PO ONE (10:18)
--- NOTE | 2020-01-20 10:20 | ER Document Report ---
HPI - HPI Patient complains to provider of: Left hand injury Time Seen by Provider: 01/20/20 10:15 Onset: Just prior to arrival Onset/Duration: Sudden Quality of pain: Sharp Pain Level: 4 Context: Patient states that she accidentally closed her left hand in the car door. Patient was readjusting her seatbelt and did not move her hand quick enough. Patient with left hand tenderness over the metacarpals. Patient with increased tenderness and swelling over the left third metacarpal. Patient is right-hand dominant. Exacerbated by: Movement Relieved by: Denies Similar symptoms previously: No Recently seen / treated by doctor: No - ROS ROS below otherwise negative: Yes Systems Reviewed and Negative: Yes All other systems reviewed and negative - NEURO Neurology: DENIES: Weakness - GASTROINTESTINAL Gastrointestinal: DENIES: Nausea - REPRODUCTIVE Reproductive: DENIES: : - MUSCULOSKELETAL Musculoskeletal: REPORTS: Extremity pain - left hand, Swelling - DERM Skin Color: Ecchymosis Past Medical History - General Information source: Patient - Social History Smoking Status: Current Every Day Smoker Chew tobacco use (# tins/day): No Frequency of alcohol use: None Drug Abuse: None Occupation: [employer], [employer] service Family History: Arthritis, CAD, CVA, DM, Hyperlipidemia, Hypertension, Malignancy Patient has suicidal ideation: No Patient has homicidal ideation: No Pulmonary Medical History: Reports: Hx Pneumonia - Hospitalized, May 2004 Neurological Medical History: Reports: Hx Migraine Musculoskeletal Medical History: Reports Hx Musculoskeletal Trauma - Toe fracture Psychiatric Medical History: Reports: Hx Depression - After second childbirth Traumatic Medical History: Reports: Hx Fractures - Toe Past Surgical History: Reports: Hx Adenoidectomy, Hx Section, Hx Cholecystectomy, Hx Gynecologic Surgery - tubes tied, , LEEP, Hx Myringotomy, Hx Oral Surgery - Tooth surgically removed, Hx Tubal Ligation. Denies: Hx Hysterectomy, Hx Pacemaker - Immunizations Immunizations up to date: Yes Hx Diphtheria, Pertussis, Tetanus Vaccination: Yes Vertical Provider Document - CONSTITUTIONAL Agree With Documented VS: Yes Exam Limitations: No Limitations General Appearance: WD/WN, No Apparent Distress - INFECTION CONTROL TRAVEL OUTSIDE OF THE [place] IN LAST 30 DAYS: No - HEENT HEENT: Atraumatic, Normocephalic - NECK Neck: Normal Inspection - RESPIRATORY Respiratory: No Respiratory Distress - CARDIOVASCULAR Pulses: Normal: Radial - MUSCULOSKELETAL/EXTREMETIES Musculoskeletal/Extremeties: MAEW, FROM, Tender - Left hand tenderness over the left second through fifth metacarpals, swelling and ecchymosis over the left third MCP joint, Edema, Eccymosis - NEURO Level of Consciousness: Awake, Alert, Appropriate Motor/Sensory: No Motor Deficit - DERM Integumentary: Warm, Dry, No Rash Course - Re-evaluation Re-evalutation: 01/20/20 11:01 X-ray reviewed, patient without any acute fracture, will immobilize and refer to orthopedics for any persistent pain or problems. - Vital Signs Vital signs: Temp Pulse Resp BP Pulse Ox 98.1 F 82 18 122/85 96 01/20/20 09:55 01/20/20 09:55 01/20/20 09:55 01/20/20 09:55 01/20/20 09:55 - Diagnostic Test Radiology reviewed: Image reviewed, Reports reviewed Procedures - Immobilization Left Hand Pre-Proc Neuro Vasc Exam: Normal Immobilizer type: Shayne wrap Performed by: PCT Post-Proc Neuro Vasc Exam: Normal Alignment checked and good: Yes Discharge - Discharge Clinical Impression: Sprain of hand, left Qualifiers: Encounter type: initial encounter Qualified Code(s): S63.92XA - Sprain of unspecified part of left wrist and hand, initial encounter Contusion Qualifiers: Encounter type: initial encounter Contusion area: hand Laterality: left Qualified Code(s): S60.222A - Contusion of left hand, initial encounter Condition: Stable Disposition: HOME, SELF-CARE Instructions: Contusion ([facility]), Ice & Elevation ([facility]), Sprain ([facility]) Additional Instructions: Return immediately for any new or worsening symptoms Followup with your primary care provider, call tomorrow to make a followup appointment Follow-up with orthopedics for any persistent pain or problems Prescriptions: Naproxen [Naprosyn 250 Nmg Tablet] 1 tab PO BID #14 tablet Forms: Return to Work Referrals: CLAIRE OTTO MD [NO LOCAL MD] - Follow up as needed COURTNEY BENITEZ DO [ACTIVE STAFF] - Follow up as needed
--- NOTE | 2020-01-20 10:45 | RADIOLOGY REPORT (SQ) ---
EXAM DESCRIPTION: HAND LEFT 3 VIEWS COMPLETED DATE/TIME: 01/20/2020 10:35 am REASON FOR STUDY: crush injury, L 3rd MC pain COMPARISON: None. EXAM PARAMETERS: NUMBER OF VIEWS: Three views. TECHNIQUE: AP, lateral and oblique radiographic images acquired of the left hand. LIMITATIONS: None. FINDINGS: MINERALIZATION: Normal. BONES: No acute fracture or dislocation. No worrisome bone lesions. JOINTS: No effusions. SOFT TISSUES: No soft tissue swelling. No foreign body. OTHER: No other significant finding. IMPRESSION: NEGATIVE STUDY OF THE LEFT HAND. NO RADIOGRAPHIC EVIDENCE OF ACUTE INJURY. TECHNICAL DOCUMENTATION: JOB ID: [id number] 2010 [employer]- All Rights Reserved Reading location - IP/workstation name: [email or web address]
[2020-01-20 11:17] VITALS: BP 129/79
== END 2020-01-20 11:17 | disposition home or self-care (01) ==
LOC: ER 09:41
DX: S63.92XA Sprain of unspecified part of left wrist and hand, initial encounter (principal); S60.222A Contusion of left hand, initial encounter; W23.1XXA Caught, crushed, jammed, or pinched between stationary objects, initial encounter; F17.200 Nicotine dependence, unspecified, uncomplicated; Z90.49 Acquired absence of other specified parts of digestive tract; Z98.51 Tubal ligation status
CPT/HCPCS: 99283

== ENCOUNTER 2020-03-28 23:44 | Emergency (ER) | payer BC ==
[2020-03-29] MEDS ORDERED: PROMETHAZINE HCL 25 MG TABLET PO ONE (02:01)
[2020-03-29] MEDS ORDERED: OXYCODONE-ACETAMINOPHEN 5-325 MG TABLET PO ONE (02:01)
--- NOTE | 2020-03-29 02:02 | ER Document Report ---
ED GI/ - General Chief Complaint: Vaginal Pain Stated Complaint: VAGINAL PAIN Time Seen by Provider: 03/29/20 01:55 Primary Care Provider: JOLENE CANDELARIA MD [Primary Care Provider] - Follow up as needed Notes: Patient is a 39-year-old female that comes emergency department for chief complaint of vaginal irritation, painful urination, and burning in the genital genital area for the past week. She states symptoms are worsening. She does report vaginal discharge. She states has not been sexually active for 8 months. She states initially she thought it was simply a yeast infection, she states she was prescribed topical miconazole and then nystatin, she states the area seemed to worsen and itch more so she thinks she might be allergic to them. She denies abdominal pain, flank pain, nausea or vomiting, fever or chills. She takes no daily medications. TRAVEL OUTSIDE OF THE [place] IN LAST 30 DAYS: No - Related Data Allergies/Adverse Reactions: cephalexin monohydrate [From Keflex] Allergy (Verified 01/20/20 09:56) miconazole [From Monistat 7] Allergy (Verified 03/29/20 00:06) morphine [Morphine] Allergy (Verified 01/20/20 09:56) Bee Stings Allergy (Uncoded 01/20/20 09:56) Past Medical History - General Information source: Patient - Social History Smoking Status: Current Every Day Smoker Chew tobacco use (# tins/day): No Frequency of alcohol use: None Drug Abuse: None Lives with: Alone Family History: Arthritis, CAD, CVA, DM, Hyperlipidemia, Hypertension, Malignancy Patient has homicidal ideation: No - Past Medical History Cardiac Medical History: Reports: Hx Hypertension Denies: Hx Coronary Artery Disease, Hx Heart Attack Pulmonary Medical History: Reports: Hx Pneumonia - Hospitalized, May 2004 Denies: Hx Asthma, Hx Bronchitis, Hx COPD Neurological Medical History: Reports: Hx Migraine. Denies: Hx Cerebrovascular Accident, Hx Seizures Renal/ Medical History: Denies: Hx Peritoneal Dialysis Musculoskeletal Medical History: Denies Hx Arthritis, Reports Hx Musculoskeletal Trauma - Toe fracture Psychiatric Medical History: Reports: Hx Depression - After second childbirth Traumatic Medical History: Reports: Hx Fractures - Toe Past Surgical History: Reports: Hx Adenoidectomy, Hx Section, Hx Cholecystectomy, Hx Gynecologic Surgery - tubes tied, , LEEP, Hx Myringotomy, Hx Oral Surgery - Tooth surgically removed, Hx Tubal Ligation. Denies: Hx Hysterectomy, Hx Pacemaker - Immunizations Immunizations up to date: Yes Hx Diphtheria, Pertussis, Tetanus Vaccination: Yes Review of Systems - Review of Systems Constitutional: No symptoms reported EENT: No symptoms reported Cardiovascular: No symptoms reported Respiratory: No symptoms reported Gastrointestinal: No symptoms reported Genitourinary: See HPI Female Genitourinary: See HPI Musculoskeletal: No symptoms reported Skin: No symptoms reported Hematologic/Lymphatic: No symptoms reported Neurological/Psychological: No symptoms reported Physical Exam - Vital signs Vitals: Temp Pulse Resp BP Pulse Ox 98.7 F 86 18 118/103 H 98 03/29/20 00:04 03/29/20 00:04 03/29/20 00:04 03/29/20 00:04 03/29/20 00:04 - Notes Notes: GENERAL: Alert, interacts well. No acute distress. HEAD: Normocephalic, atraumatic. EYES: Pupils equal, round, and reactive to light. Extraocular movements intact. ENT: Oral mucosa moist, tongue midline. Oropharynx unremarkable. Airway patent. NECK: Full range of motion. Supple. Trachea midline. No lymphadenopathy. LUNGS: Clear to auscultation bilaterally, no wheezes, rales, or rhonchi. No respiratory distress. Non-tender chest wall. HEART: Regular rate and rhythm. No murmur ABDOMEN: Soft, non-tender. Non-distended. Bowel sounds present in all 4 quadrants. GENITOURINARY: No rash or abnormal finding externally, speculum exam shows scattered whitish discharge, erythema of the cervix, some tenderness but no cervical motion tenderness is noted. Otherwise unremarkable. No bleeding. Exam performed with Makenna WALDRON. EXTREMITIES: Moves all 4 extremities spontaneously. No edema, normal radial and dorsalis pedis pulses bilaterally. No cyanosis. BACK: no cervical, thoracic, lumbar midline tenderness. No saddle anesthesia, normal distal neurovascular exam. Moves all extremities in full range of motion. NEUROLOGICAL: Alert and oriented x3. Normal speech. Cranial nerves II through XII grossly intact. Strength 5/5 in all extremities. PSYCH: Normal affect, normal mood. SKIN: Warm, dry, normal turgor. No rashes or lesions noted. Course - Re-evaluation Re-evalutation: Patient with nontender abdomen, unremarkable vital signs, no fever, nausea, vomiting. Urinalysis shows white blood cells but patient has obvious vaginitis, discharge, erythema of the cervix on exam. Wet mount is positive for trichomonas with 3+ bacteria, 3+ white blood cells. Gonorrhea and Chlamydia are pending. Urine culture pending. test negative. I do not suspect PID based on her exam. Patient is allergic to cephalosporins and was therefore given 2000 mg of azithromycin, placed on Flagyl. Discussed precautions, recommendations, return precautions. Patient states understanding and agreement. - Vital Signs Vital signs: Temp Pulse Resp BP Pulse Ox 97.7 F 76 18 120/67 96 03/29/20 04:19 03/29/20 04:19 03/29/20 04:19 03/29/20 04:19 03/29/20 04:19 - Laboratory Laboratory results interpreted by me: 03/29/20 02:18 Urine Protein 30 H Urine Ketones TRACE H Urine Blood SMALL H Urine Urobilinogen 4.0 H Ur Leukocyte Esterase MODERATE H Discharge - Discharge Clinical Impression: Pelvic pain, Vaginal irritation, Trichomonal vaginitis Condition: Stable Disposition: HOME, SELF-CARE Additional Instructions: Your work-up indicates a pelvic infection with trichomonas, an STD. Complete your treatment as prescribed, avoid intercourse for 1 week, any partner also needs to be treated for this infection. Follow-up with primary care for additional evaluation and management. Return for any concerning symptoms including vomiting, fever, severe worsening pain, or any other concerning symptoms. Prescriptions: Metronidazole [Flagyl 500 mg Tablet] 500 mg PO BID 7 Days #14 tablet Forms: Return to Work Referrals: JOLENE CANDELARIA MD [Primary Care Provider] - Follow up as needed
[2020-03-29 02:35] LABS: APPEARANCE,URINE SLIGHTLY-CLOUDY; BILIRUBIN,URINE NEGATIVE (NEGATIVE); COLOR,URINE YELLOW; GLUCOSE, URINE NEGATIVE (NEGATIVE); KETONES,URINE TRACE mg/dL (NEGATIVE); LEUKOCYTE ESTERASE,URINE MODERATE (NEGATIVE); NITRITE,URINE NEGATIVE (NEGATIVE); PROTEIN,URINE 30 mg/dL (NEGATIVE); URINE SPECIFIC GRAVITY 1.031
[2020-03-29 03:17] LABS: T.VAGINALIS (WET MOUNT) TRICHOMONAS SEEN; WBCS (WET MOUNT) 3+ WBCS SEEN; YEAST (WET MOUNT) NO YEAST SEEN
[2020-03-29 03:18] LABS: BACTERIA (WET MOUNT) 3+ BACTERIA SEEN
[2020-03-29] MEDS ORDERED: METRONIDAZOLE 500 MG TABLET PO ONE (03:45)
[2020-03-29] MEDS ORDERED: AZITHROMYCIN 250 MG TABLET PO ONE (03:45)
[2020-03-29] MEDS ORDERED: ONDANSETRON ODT 4 MG TAB (6 TAB/ER DISP) PO PRN (03:46)
[2020-03-29] MEDS ORDERED: HYDROCODONE/ACETAMINOPHEN 5-325 MG (6 TAB/ER DISP) PO PRN (03:46)
[2020-03-29 04:21] VITALS: BP 120/67
[2020-03-29 04:36] LABS: CHLAM PCR NOT DETECTED (NOT DETECT)
== END 2020-03-29 04:21 | disposition home or self-care (01) ==
LOC: ER 23:44
DX: A59.01 Trichomonal vulvovaginitis (principal); R10.2 Pelvic and perineal pain; N89.8 Other specified noninflammatory disorders of vagina; R30.9 Painful micturition, unspecified; Z88.8 Allergy status to other drugs, medicaments and biological substances; F17.200 Nicotine dependence, unspecified, uncomplicated; I10 Essential (primary) hypertension
CPT/HCPCS: 81001; 81025; 87086; 87210; 87491; 87591; 99283